=== PATIENT | female | born 1965 | race Two or more races ===

== ENCOUNTER 2016-06-23 15:00 | Emergency (ER) | payer SELFPAY ==
[~2016-06-23] VITALS: Ht 154.9 cm; Wt 71.7 kg
[2016-06-23] MEDS ORDERED: HYDROcodone-ACET 7.5/325MG TAB PO ONE (20:00)
[2016-06-23] MEDS ORDERED: cloNIDine HCL 0.1 MG TAB PO ONE (20:00)
[2016-06-23 20:11] VITALS: BP 188/101
== END 2016-06-23 21:17 | disposition home or self-care (01) ==
LOC: ER 15:15
DX: S39.012A Strain of muscle, fascia and tendon of lower back, initial encounter (principal); I10 Essential (primary) hypertension; E11.9 Type 2 diabetes mellitus without complications; X58.XXXA Exposure to other specified factors, initial encounter; Y93.89 Activity, other specified; Y99.8 Other external cause status; Y92.89 Other specified places as the place of occurrence of the external cause
CPT/HCPCS: 71020; 93005

== ENCOUNTER 2016-06-26 10:06 | Emergency (ER) | payer SELFPAY ==
[~2016-06-26] VITALS: Ht 162.6 cm; Wt 86.2 kg
[2016-06-26 10:21] VITALS: BP 0/0
== END 2016-06-26 10:16 | disposition expired ==
LOC: EDBD 10:10 → ER 10:10 → EDUNIT# 10:10 → ER 10:16
DX: I46.9 Cardiac arrest, cause unspecified (principal); E11.65 Type 2 diabetes mellitus with hyperglycemia; I10 Essential (primary) hypertension; Z86.73 Personal history of transient ischemic attack (TIA), and cerebral infarction without residual deficits
CPT/HCPCS: 92950; 99291